=== PATIENT | female | born 1955 | race Two or more races ===

== ENCOUNTER 2018-05-29 10:37 | Outpatient (CLI) | payer OTHER ==
[~2018-05-29 10:37] MED LIST: AKTOB5 ML OP; AVALIDE 150-12.1 TA1 PO; BISMUTH SUBSALICYLATE PO; CATAFLAM50 MG PO; CIPRO 500 MG PO; FLEXERIL10 MG PO; LEVAQUIN750 MG; Levsin/Sl 0.125 MG TAB.SUBL SL; MEDROLPACK PO; NATURE'S TEARS15 ML OP; ORPH100T PO; VASERETIC PO; VOLTAREN5 ML OP
== END 2018-05-29 10:47 | disposition home or self-care (01) ==
LOC: RAD 501 10:37
DX: M16.0 Bilateral primary osteoarthritis of hip (principal)

== ENCOUNTER 2018-09-25 09:11 | Emergency (ER) | payer OTHER ==
[~2018-09-25] VITALS: Ht 157.5 cm; Wt 74.8 kg
[2018-09-25] MEDS ORDERED: VITAMIN D400 UNI2 (09:25)
[2018-09-25] MEDS ORDERED: ENALAPRIL MALEAT5 MG (09:25)
[2018-09-25] MEDS ORDERED: GLUCOSAMINE1000 MG (09:25)
[2018-09-25] MEDS ORDERED: FLAGYL500MG PO (13:48)
[2018-09-25] MEDS ORDERED: CIPRO500 MG PO (13:48)
[2018-09-25] MEDS ORDERED: LEVSIN/SL0.125 MG PO (13:48)
[2018-09-25] MEDS ORDERED: INTESTINEX680 M1 PO (13:48)
== END 2018-09-25 20:11 | disposition home or self-care (01) ==
LOC: ER 09:11
DX: K57.92 Diverticulitis of intestine, part unspecified, without perforation or abscess without bleeding (principal)

== ENCOUNTER 2019-03-19 11:05 | Emergency (ER) | payer OTHER ==
[~2019-03-19] VITALS: Ht 157.5 cm; Wt 70.8 kg
[~2019-03-19 11:05] MED LIST changes: +CIPRO500 MG PO; +ENALAPRIL MALEAT5 MG; +FLAGYL500MG PO; +GLUCOSAMINE1000 MG; +INTESTINEX680 M1 PO; +LEVSIN/SL0.125 MG PO; +VITAMIN D400 UNI2
== END 2019-03-19 18:49 | disposition home or self-care (01) ==
LOC: ER 11:05
DX: R42 Dizziness and giddiness (principal); E86.0 Dehydration

== ENCOUNTER 2020-08-09 10:30 | Emergency (ER) | payer OTHER ==
[~2020-08-09] VITALS: Ht 157.5 cm; Wt 72.6 kg
[2020-08-09] MEDS ORDERED: PROTONIX40 MG PO (18:46)
[2020-08-09] MEDS ORDERED: FLAGYL500MG PO (18:46)
[2020-08-09] MEDS ORDERED: CIPRO500 MG PO (18:46)
[2020-08-09] MEDS ORDERED: LEVSIN/SL0.125 MG SL (18:46)
[2020-08-09] MEDS ORDERED: INTESTINEX680 M2 PO (18:46)
== END 2020-08-09 19:09 | disposition home or self-care (01) ==
LOC: ER 10:30
DX: K57.92 Diverticulitis of intestine, part unspecified, without perforation or abscess without bleeding (principal); R10.32 Left lower quadrant pain

== ENCOUNTER 2021-04-03 14:19 | Emergency (ER) | payer OTHER ==
[~2021-04-03] VITALS: Ht 157.5 cm; Wt 71.7 kg
[~2021-04-03 14:19] MED LIST changes: +INTESTINEX680 M2 PO; +LEVSIN/SL0.125 MG SL; +PROTONIX40 MG PO
[2021-04-03] MEDS ORDERED: ADULT LOW DOSE81 M1 (14:49)
== END 2021-04-03 17:48 | disposition home or self-care (01) ==
LOC: ER 14:19
DX: J00 Acute nasopharyngitis [common cold] (principal); B34.9 Viral infection, unspecified; Z20.822 Contact with and (suspected) exposure to COVID-19

== ENCOUNTER 2021-06-21 19:31 | Emergency (ER) | payer OTHER ==
[~2021-06-21] VITALS: Ht 157.5 cm; Wt 71.7 kg
[~2021-06-21 19:31] MED LIST changes: +ADULT LOW DOSE81 M1; -ENALAPRIL MALEAT5 MG; +ENALAPRIL MALEAT5 MG PO
[2021-06-22] MEDS ORDERED: ULTRACET PO (09:01)
[2021-06-22] MEDS ORDERED: KEPPRA500 MG PO (09:01)
== END 2021-06-22 09:22 | disposition home or self-care (01) ==
LOC: ER 19:31
DX: I60.8 Other nontraumatic subarachnoid hemorrhage (principal); I10 Essential (primary) hypertension; M54.89 Other dorsalgia; M54.2 Cervicalgia; Z03.818 Encounter for observation for suspected exposure to other biological agents ruled out
CPT/HCPCS: 70450; 70470; Q9965

== ENCOUNTER 2021-06-22 10:00 | Inpatient (IN) | payer OTHER ==
[~2021-06-22] VITALS: Ht 157.5 cm; Wt 71.7 kg
[~2021-06-22 10:00] MED LIST changes: +KEPPRA500 MG PO; +ULTRACET PO
[2021-06-30] MEDS ORDERED: CLONAZEPAM0.5 MG PO (07:53)
[2021-06-30] MEDS ORDERED: GABAPENTIN100 MG PO (07:54)
[2021-06-30] MEDS ORDERED: PANTOPRAZOLE SO40 MG PO (07:54)
[2021-06-30] MEDS ORDERED: LIDODERM1 EACH TOP (07:55)
[2021-06-30] MEDS ORDERED: POLY119PG PO (07:55)
== END 2021-06-30 09:05 | disposition home or self-care (01) | DRG 66 ==
LOC: ER 10:00 → SEC-K 10:24 → MEDI 10:24 → SEC-K 11:42 → MEDI 11:49
PROVIDERS: ADMIT Internal Medicine; ATTEND Internal Medicine
PROC: 4A12X4Z Monitoring of Cardiac Electrical Activity, External Approach (ICD-10-PCS; principal; 2021-06-24)
DX: I60.8 Other nontraumatic subarachnoid hemorrhage (principal); I10 Essential (primary) hypertension; G30.0 Alzheimer's disease with early onset; F43.20 Adjustment disorder, unspecified
CPT/HCPCS: 70544; 70552; 72141

== ENCOUNTER 2021-12-05 09:05 | Outpatient (CLI) | payer OTHER ==
[~2021-12-05 09:05] MED LIST changes: +CLONAZEPAM0.5 MG PO; +GABAPENTIN100 MG PO; +LIDODERM1 EACH TOP; +PANTOPRAZOLE SO40 MG PO; +POLY119PG PO
== END 2021-12-05 09:20 | disposition home or self-care (01) ==
LOC: TOM 09:05
PROVIDERS: ATTEND Internal Medicine Gastroenterology
DX: K56.600 Partial intestinal obstruction, unspecified as to cause (principal); Z86.010 Personal history of colon polyps

== ENCOUNTER 2022-06-20 13:20 | Inpatient (IN) | payer OTHER ==
[~2022-06-20] VITALS: Ht 157.5 cm; Wt 159.7 kg
--- NOTE | 2022-06-20 14:18 | NUR ---
PTE REFIERE DOLOR ABDOMINAL DESDE HACE 2 SEMANAS. PTE SE RECIBE AMBULANDO, ALERTA Y ORIENTADO X 3.
--- NOTE | 2022-06-20 16:29 | NUR ---
SE EDUCA A PTE SOOBRE [place] MEDICO ESTA REFIERE ENTENDER. SE SOFY MUESTRAS DE LABORATORIO UTILIZANDO MEDIDAS ASEPTICAS. SE COLOCA H/L A PTE Y MEDICAMENTOS LOS CUALES [place]. SE PHYLLIS CONTRASTE PO A PTE Y SE NOTIFICA ESTUDIO DE CT PENDIENTE.
== END 2022-06-23 13:19 | disposition home or self-care (01) | DRG 392 ==
LOC: ER 13:20 → MEDI 21:19
PROVIDERS: ADMIT Internal Medicine; ATTEND Internal Medicine
DX: K57.32 Diverticulitis of large intestine without perforation or abscess without bleeding (principal); N39.0 Urinary tract infection, site not specified; E86.0 Dehydration; I10 Essential (primary) hypertension

== ENCOUNTER 2022-08-15 14:05 | Inpatient (IN) | payer OTHER ==
[~2022-08-15] VITALS: Ht 157.5 cm; Wt 71.2 kg
[2022-08-15] MEDS ORDERED: ENALAPRIL-HCTZ1 EAC1 PO (14:24)
[2022-08-15] MEDS ORDERED: ACID REDUCER20 M1 PO (14:25)
== END 2022-08-18 19:56 | disposition left against medical advice (07) | DRG 392 ==
LOC: ER 14:05 → SEC-K 22:18 → MEDJ 08-16 10:15
PROVIDERS: ADMIT Internal Medicine; ATTEND Internal Medicine
DX: K52.9 Noninfective gastroenteritis and colitis, unspecified (principal); N39.0 Urinary tract infection, site not specified; K57.30 Diverticulosis of large intestine without perforation or abscess without bleeding; I10 Essential (primary) hypertension

== ENCOUNTER 2023-01-02 14:37 | Outpatient (CLI) | payer OTHER ==
[~2023-01-02 14:37] MED LIST changes: +ACID REDUCER20 M1 PO; +ENALAPRIL-HCTZ1 EAC1 PO
== END 2023-01-02 14:40 | disposition home or self-care (01) ==
LOC: EKG 14:37
PROVIDERS: ATTEND Surgery
DX: Z01.810 Encounter for preprocedural cardiovascular examination (principal); K57.30 Diverticulosis of large intestine without perforation or abscess without bleeding; N32.1 Vesicointestinal fistula; R10.9 Unspecified abdominal pain; R14.0 Abdominal distension (gaseous)

== ENCOUNTER 2023-01-05 08:00 | Inpatient (IN) | payer OTHER ==
[~2023-01-05] VITALS: Ht 157.5 cm; Wt 68.0 kg
[2023-01-05] MEDS ORDERED: ZETIA10 MG PO (09:08)
[2023-01-05] MEDS ORDERED: LOSARTAN-HCTZ1 EACH PO (09:08)
[2023-01-05] MEDS ORDERED: PROTONIX20 MG PO (09:09)
[2023-01-05] MEDS ORDERED: CRESTO PO (09:09)
[2023-01-12] MEDS ORDERED: [UNRECOGNIZED DRUG - OTHER] (10:22)
[2023-01-16] MEDS ORDERED: HYOSCYAMINE0.125 M1 SL (16:58)
[2023-01-16] MEDS ORDERED: TRAMADOL HCL50 MG PO (16:58)
[2023-01-16] MEDS ORDERED: INTESTINEX680 M1 PO (16:59)
== END 2023-01-16 17:14 | disposition home or self-care (01) | DRG 330 ==
LOC: SURH 01-12 04:44 → O/R 01-12 04:44 → SURG 01-12 07:00 → SURH 01-12 13:26
PROVIDERS: ADMIT Surgery; ATTEND Surgery
PROC: 0DBP4ZZ Excision of Rectum, Percutaneous Endoscopic Approach (ICD-10-PCS; 2023-01-12)
PROC: 0DNW4ZZ Release Peritoneum, Percutaneous Endoscopic Approach (ICD-10-PCS; 2023-01-12)
PROC: 0DJD8ZZ Inspection of Lower Intestinal Tract, Via Natural or Artificial Opening Endoscopic (ICD-10-PCS; 2023-01-12)
PROC: 0DTN4ZZ Resection of Sigmoid Colon, Percutaneous Endoscopic Approach (ICD-10-PCS; principal; 2023-01-12 07:00)
DX: K57.30 Diverticulosis of large intestine without perforation or abscess without bleeding (principal); N32.1 Vesicointestinal fistula; N73.6 Female pelvic peritoneal adhesions (postinfective); N99.4 Postprocedural pelvic peritoneal adhesions; I10 Essential (primary) hypertension

== ENCOUNTER 2023-02-21 17:52 | Inpatient (IN) | payer OTHER ==
[~2023-02-21] VITALS: Ht 157.5 cm; Wt 68.0 kg
[~2023-02-21 17:52] MED LIST changes: +CRESTO PO; +HYOSCYAMINE0.125 M1 SL; +LOSARTAN-HCTZ1 EACH PO; +PROTONIX20 MG PO; +TRAMADOL HCL50 MG PO; +ZETIA10 MG PO; +[UNRECOGNIZED DRUG - OTHER]
== END 2023-02-22 20:24 | disposition home or self-care (01) | DRG 641 ==
LOC: ER 17:52 → MEDJ 23:15
PROVIDERS: ADMIT Internal Medicine; ATTEND Internal Medicine
PROC: BW211ZZ Computerized Tomography (CT Scan) of Abdomen and Pelvis using Low Osmolar Contrast (ICD-10-PCS; principal; 2023-02-21)
DX: E87.0 Hyperosmolality and hypernatremia (principal); E86.0 Dehydration; E87.6 Hypokalemia; Z90.49 Acquired absence of other specified parts of digestive tract; R30.1 Vesical tenesmus; R30.0 Dysuria

== ENCOUNTER 2023-12-10 13:38 | Outpatient (CLI) | payer OTHER | END 2023-12-10 13:40 | disposition home or self-care (01) | LOC: SONOGRAMA 13:38 | PROVIDERS: ATTEND Pathology Anatomic Pathology & Clinical Pathology | DX: D34 Benign neoplasm of thyroid gland (principal); E04.2 Nontoxic multinodular goiter; E07.89 Other specified disorders of thyroid ==

== ENCOUNTER 2024-11-30 13:27 | Emergency (ER) | payer OTHER ==
[~2024-11-30] VITALS: Ht 157.5 cm; Wt 77.1 kg
[2024-11-30] MEDS ORDERED: BUTALB/ACETAMINOPHEN/CAFFEINE 1 TAB TABLET PO ONE ×2 (14:45→15:08)
[2024-11-30 15:38] LABS: URINE APPEARANCE Clear; URINE BILIRRUBIN Negative (NEGATIVE); URINE BLOOD Negative; URINE COLOR Yellow; URINE GLUCOSE Negative (NEGATIVE); URINE KETONE Negative (NEGATIVE); URINE LEUKOCYTE Trace; URINE NITRATE Negative; URINE PROTEIN Negative (NEGATIVE)
[2024-11-30 15:39] LABS: URINE BACTERIA 41.6 uL (0.0-1933); URINE EPITHELIAL CELLS 24.8 uL (0.0-38.8); URINE RBC 6.6 uL (0.0-20.8); URINE WBC 31.9 uL (0.0-23.2)
[2024-11-30 15:46] LABS: URINE CAST 0.29 uL (0.0-1.40)
[2024-11-30 15:53] LABS: ALBUMIN 3.8 gm/dL (3.4-5.0); BILIRUBIN TOTAL 0.35 mg/dL (0.3-1.2); CALCIUM 9.3 mg/dL (8.5-10.1); CREATININE SERUM 1.03 mg/dL (0.55-1.02); GFR 53.13; GLOBULINA 3.9 G/DL (2.4-3.5); HEMATOCRIT 44.8 % (36.0-45.00); HEMOGLOBIN 15.2 g/dL (12.0-15.00); MEAN CORPUSCULAR HEMOGLOBIN 31.5 pg (27.00-32.0); MEAN CORPUSCULAR HGB CONC 33.8 g/dl (32.0-36.0); PLATELET COUNT 256 K/uL (150-450); POTASSIUM 3.49 mEq/L (3.5-5.1); RED BLOOD COUNT 4.81 M/uL (4.00-6.00); RED CELL DISTRIBUTION WIDTH 12.8 % (11.5-14.5); TOTAL PROTEIN 7.7 gm/dL (6.4-8.2)
== END 2024-11-30 17:11 | disposition home or self-care (01) ==
LOC: ER 13:29
PROVIDERS: General Practice
DX: R53.1 Weakness (principal); I10 Essential (primary) hypertension; Z86.73 Personal history of transient ischemic attack (TIA), and cerebral infarction without residual deficits; Z20.822 Contact with and (suspected) exposure to COVID-19

== ENCOUNTER 2025-05-04 07:09 | Outpatient (CLI) | payer OTHER | END 2025-05-04 07:10 | disposition home or self-care (01) | LOC: NUCLEAR 07:09 | PROVIDERS: ATTEND Internal Medicine | DX: I25.110 Atherosclerotic heart disease of native coronary artery with unstable angina pectoris (principal) ==

== ENCOUNTER 2025-07-15 13:48 | Emergency (ER) | payer OTHER ==
[~2025-07-15] VITALS: Ht 157.5 cm; Wt 76.2 kg
[2025-07-15 15:22] VITALS: BP 129/77; O2SAT 98
[2025-07-15] MEDS ORDERED: PROAIR RESPICL90 MCG IH (15:24)
[2025-07-15] MEDS ORDERED: NORVASC5 MG PO (15:24)
[2025-07-15] MEDS ORDERED: DEXAMETHASONE SODIUM PHOSPHATE 4 MG/ML VIAL IM STA (15:52)
[2025-07-15] MEDS ORDERED: KETOROLAC TROMETHAMINE 30 MG VIAL IM STA (15:52)
[2025-07-15] MEDS ORDERED: DEXAMETHASONE SODIUM PHOSPHATE 4 MG/ML VIAL ONE (16:03)
[2025-07-15] MEDS ORDERED: KETOROLAC TROMETHAMINE 30 MG VIAL ONE (16:03)
[2025-07-15 16:15] LABS: BASO % 0.3 % (0.1-1.2); EOS # 0.22 (0.04-0.54); EOS % 3.1 % (0.7-7.0); LYMPH # 2.52 (1.18-3.74); LYMPH % 35.6 % (19.3-53.1); MEAN PLATELET VOLUME 10.00 fl (9.4-12.4); MONO # 0.65 (0.24-0.82); MONO % 9.2 % (4.7-12.5); NEUT # 3.65 (1.56-6.13); NEUT % 51.5 % (34.0-71.1); RED CELL DISTRIBUTION WIDTH 12.3 % (11.6-14.4)
[2025-07-15 16:46] LABS: BUN CREA RATIO 26.0 (7.0-25.0); CREATININE SERUM 0.9 mg/dL (0.55-1.02); GFR 62.08; GLUCOSE FASTING 98.0 mg/dL (65-100); OSMOLALITY SERUM 289.0 MOSM/KG (275-295)
[2025-07-15 16:55] LABS: URINE APPEARANCE Clear; URINE BILIRRUBIN Negative (NEGATIVE); URINE BLOOD Negative; URINE COLOR Yellow; URINE GLUCOSE Negative (NEGATIVE); URINE KETONE Negative (NEGATIVE); URINE LEUKOCYTE Negative; URINE NITRATE Negative; URINE PROTEIN Negative (NEGATIVE); URINE UROBILINOGEN 0.2 E.U./dl
[2025-07-15 16:59] LABS: URINE BACTERIA 4.7 uL (0.0-1933); URINE EPITHELIAL CELLS 3.2 uL (0.0-38.8); URINE RBC 5.5 uL (0.0-20.8); URINE WBC 2.9 uL (0.0-23.2)
[2025-07-15 17:01] LABS: URINE CAST 0.14 uL (0.0-1.40)
[2025-07-15 17:19] LABS: BASOPHIL MAN 2.0 %; EOSINOPHIL MAN 1.0 %; LYMPHOCYTE MAN 38.0 %; MONOCYTE MAN 7.0 %; NEUTROPHILS MAN 44.0 %
[2025-07-15] MEDS ORDERED: TYLENOL ARTHRI650 MG PO (18:29)
== END 2025-07-15 18:56 | disposition home or self-care (01) ==
LOC: ER 13:48
PROVIDERS: General Practice
DX: R10.A2 Flank pain, left side (principal); R10.9 Unspecified abdominal pain; I10 Essential (primary) hypertension